=== PATIENT | female | born 1985 | race Two or more races ===

== ENCOUNTER 2023-06-06 21:20 | Emergency (ER) | payer MEDICAID, OTHER, SELFPAY ==
[2023-06-06 21:28] VITALS: BP 119/64; PULSE 93; RESP 17; TEMP 37; O2SAT 97; BMI 30.3
[2023-06-06 22:34] LABS: IDNOW Serial# 58CA691E; Strep A Nucleic Acid Negative (Negative)
[2023-06-06 23:04] LABS: Influenza A PCR POSITIVE (Negative); Influenza B PCR NEGATIVE (Negative); Resp Syncy Virus RNA Qual PCR NEGATIVE (Negative); SARS COV2 PCR INHOUSE NEGATIVE (Negative)
--- NOTE | 2023-06-06 23:47 | ED_ITS ---
HPI - General Adult General Chief complaint: Upper Respiratory Symptoms Stated complaint: flu symptoms cough fever Time Seen by Provider: 06/06/23 23:45 Source: patient and pest technician Mode of arrival: ambulatory Limitations: language barrier History of Present Illness HPI narrative: Patient is a 38 year old assigned female at with no reported medical history presenting to the emergency department today with a sore throat and fever. Patient states that over the last 3 days she has had a sore throat and a fever. Patient denies any dizziness, lightheadedness, abdominal pain, nausea, vomiting, chills, blurry vision, double vision, loss of vision, chest pain, difficulty breathing, shortness of breath, back pain, night sweats, pain with urination, increased urinary frequency, increased urinary urgency, blood in her urine or stool, syncope or a near syncopal episode, recent trauma or falls, bowel incontinence, bladder incontinence, bowel retention, bladder retention, or any other complaints at this time. Onset (ago): day(s) (3) Severity: mild Severity scale (1-10): 2 Relieving factors: none Exacerbating factors: none Associated symptoms: fever/chills Treatments prior to arrival: none Related Data Allergies Allergy/AdvReac Type Severity Reaction Status Date / Time No Known Allergies Allergy Verified 06/06/23 21:28 Review of Systems Constitutional: Constitutional: Reports no additional constitutional complaints, Denies chills, Reports fever(s) and Denies night sweats Eyes: Eyes: Reports no additional eye complaints, Denies blurry vision, Denies change in vision, Denies diplopia, Denies eye discharge, Denies loss of vision and Denies eye pain ENT: Denies dizziness and Reports sore throat Cardiovascular: Cardiovascular: Reports no additional cardiovascular complaints, Denies chest pain, Denies lightheadedness, Denies Loss of Consciousness and Denies dyspnea Respiratory: Respiratory: Reports no additional respiratory complaints and Denies dyspnea Gastrointestinal: Gastrointestinal: Reports no additional gastrointestinal complaints, Denies abdominal pain, Denies melena, Denies hematochezia, Denies change in bowel habits and Denies change in stool character Genitourinary: Genitourinary: Denies hematuria, Denies urinary frequency, Denies dysuria, Denies urinary incontinence, Denies urinary hesitancy and Denies urinary urgency Musculoskeletal: Musculoskeletal: Reports no additional musculoskeletal complaints, Denies numbness and Denies tingling Neurologic: Denies dizziness, Denies loss of vision, Denies numbness and Denies tingling Psychiatric: Psychiatric: Reports no additional psychiatric complaints Endocrine: Endocrine: Reports no additional endocrine complaints Hematologic/Lymphatic: Hematologic/Lymphatic: Reports no additional hematologic/lymphatic complaints Allergic/Immunologic: Allergic/Immunologic: Reports no additional allergic/immunologic complaints PMFSH Past Medical History Attestation statement: The following information was validated with the patient. Source: old records reviewed and nursing notes reviewed Social History Social History Advance Directives: No Advance Directives Information Provided: Yes Physical Exam ED Vital Signs: Vital Signs - 24 hr 06/06/23 21:28 Temperature 98.6 F Pulse Rate 93 Respiratory Rate 17 Blood Pressure 119/64 Pulse Oximetry 97 Oxygen Delivery Method Room Air BMI result Body Mass Index 30.3 Const General: cooperative, no acute distress, alert and awake Nutritional Appearance: well nourished Orientation/consciousness: patient oriented x3 Limitations: no limitations HENMT Head: Yes normal to inspection and Yes atraumatic Ears: hearing grossly normal bilaterally and external ears normal General nose exam: Normal external nose present, no nasal discharge noted and no epistaxis Face and sinus: Yes normal facial exam, No abrasion and No laceration Mouth: Normal oral and palatal mucosa present, no drooling and no muffled voice Eyes General: appearance normal, both eyes and all related structures Periorbital: periorbital findings normal Eyelids: Yes eyelids normal Conjunctivae: conjunctivae normal Pupils: Equal, round and reactive pupils present EOM: EOMs intact bilaterally Neck Neck: Yes normal visual inspection, Yes full ROM and Yes no lymphadenopathy Chest Chest palpation & inspection: normal inspection of the chest Resp Effort & Inspection: normal respiratory effort and able to speak in complete sentences GI Inspection: Yes normal to inspection Neuro General: patient oriented x3 and moves all extremities Cranial nerves: Yes Equal, round and reactive pupils present Cognition (Neuro): normal cognition Motor exam (neuro): 5/5 motor strength present throughout Sensory Exam: Normal double simultaneous stimulation for sensation Coordination: [id number] test normal Extrem General: Yes normal to inspection, Yes full ROM and Yes capillary refill normal Psych Appearance: grossly normal Mental Status: mental status grossly normal Affect: normal affect Attitude: cooperative Thought process: Normal thought process present Thought content: Normal thought content present Insight: Good insight present (Psych) Medical Decision Making Medical Decision Making [facility] Narrative: Patient is a 38 year old assigned female at with no reported medical history presenting to the emergency department today with a sore throat and a fever. Patient's physical exam was unremarkable. Patient's COVID-19, RSV, and strep pharyngitis tests were negative. Patient's influenza test was positive. I explained my physical exam findings as well as all test results to the patient. I answered all questions asked by the patient. I stressed the importance of the patient taking her medication as prescribed. I stressed the importance of the patient following up with her primary care provider. I stressed the importance of the patient returning to the emergency department immediately if her symptoms were to worsen or if she were to develop any dizziness, shortness of breath, difficulty breathing, chest pain, blurry vision, loss of vision, nausea, vomiting, abdominal pain, fever, chills, back pain, or any other complaints. Patient verbalized agreement and understanding with this treatment plan and discharge. Differential Diagnosis Differential Diagnoses: The differential diagnosis associated with the presentation includes Influenza COVID-19 RSV Strep pharyngitis Pharyngitis Admission/Observation Consideration of admission/observation: Escalation of care including admission/observation considered Patient would have been admitted to the hospital had her work up had any findings where hospital admission was appropriate and her clinical presentation warranted hospital admission. Lab Data [facility] Lab Attestation statement: I reviewed the patient's lab results. My interpretation of these results are in the [facility] Rationale portion of this note. Labs: Lab Results 06/06/23 Range/Units 22:15 Influenza Type A (PCR) POSITIVE A (Negative) Influenza Type B (PCR) NEGATIVE (Negative) RSV RNA Qual (PCR) NEGATIVE (Negative) SARS-CoV-2 RNA (RT-PCR) NEGATIVE (Negative) S. pyogenes GrpA SUMIT Negative (Negative) Prescription Management I considered prescription management with: Antiviral (tamiflu was considered how ever, given the patient's onset of symptoms, she is not a candidate.) Discharge Plan Discharge Clinical Impression: Influenza Patient Disposition: Home, Self-Care Instructions: Influenza (DC) Additional Instructions: Follow up with your primary care provider. Return to the emergency department immediately if your symptoms worsen or if you develop any dizziness, shortness of breath, difficulty breathing, chest pain, blurry vision, loss of vision, nausea, vomiting, abdominal pain, fever, chills, back pain, or any other complaints. Aaliyah un seguimiento con cui proveedor de atenci?n primaria. Regrese al departamento de emergencias inmediatamente si nahun s?ntomas empeoran o si presenta mareos, dificultad para respirar, dificultad para respirar, dolor en el pecho, visi?n borrosa, p?rdida de la visi?n, n?useas, v?mitos, dolor abdominal, fiebre, escalofr?os, dolor de espalda o cualquier otras quejas. Referrals: [facility] Family Medicine [Provider Group] (Call to establish and follow up with a primary care provider. If you already have a primary care provider, please follow up with them. Llame para establecer y realizar un seguimiento con un proveedor de atenci?n primaria. Si ya tiene un proveedor de atenci?n primaria, aaliyah un seguimiento con ?l.) [facility] Primary [facility] [Provider Group] (Call to establish and follow up with a primary care provider. If you already have a primary care provider, please follow up with them. Llame para establecer y realizar un seguimiento con un proveedor de atenci?n primaria. Si ya tiene un proveedor de atenci?n primaria, aaliyah un seguimiento con ?l.) [facility] Primary Care,[facility] [Provider Group] (Call to establish and follow up with a primary care provider. If you already have a primary care provider, please follow up with them. Llame para establecer y realizar un seguimiento con un proveedor de atenci?n primaria. Si ya tiene un proveedor de atenci?n primaria, aaliyah un seguimiento con ?l.) Stand Alone Forms: Work/School Release Interventions: ED Discharge Assessment Last Done: 06/07/23 00:25 Discharge Date/Time: 06/07/23 00:26 Print Language: Estonian
== END 2023-06-07 00:26 | disposition home or self-care (01) ==
PROVIDERS: Emergency Provider Emergency Medicine
DX: J11.1 Influenza due to unidentified influenza virus with other respiratory manifestations (principal); Z20.822 Contact with and (suspected) exposure to COVID-19; Z20.828 Contact with and (suspected) exposure to other viral communicable diseases
CPT/HCPCS: 0241U; 87651; 99283

== ENCOUNTER 2024-01-04 19:11 | Emergency (ER) | payer MEDICAID, OTHER, SELFPAY ==
--- NOTE | 2024-01-04 20:09 | PC.NURSE ---
Loader called to assist w/ triage.
--- NOTE | 2024-01-04 20:23 | ED_ITS ---
HPI - Female Genitourinary General Chief complaint: Urogenital-Female Stated complaint: Vaginal pain Time Seen by Provider: 01/04/24 22:13 Source: patient Mode of arrival: ambulatory Limitations: no limitations History of Present Illness ED Provider: Jean CHAMBERLAIN HPI Narrative: This is a 38 year old female denies pmhx presenting w/ vaginal itching, suprapubic discomfort, spotting when wiping X 15 days. Patient reports when she urinates it ross alot. Denies vaginal, discharge, nausea, vomiting, headache, vision changesm dizziness, weakness, fevers, chills. No OBGYN. Last pap a long time ago. Related Data Previous Rx's ?Medication ?Instructions ?Recorded cefdinir 300 mg capsule 300 mg PO BID 5 days #10 caps 01/04/24 fluconazole 150 mg tablet 150 mg PO Q3D 2 doses #2 tabs 01/04/24 metronidazole 500 mg tablet 500 mg PO BID 7 days #14 tabs 01/04/24 Allergies Allergy/AdvReac Type Severity Reaction Status Date / Time No Known Allergies Allergy Verified 01/04/24 20:26 Review of Systems Review of Systems: Yes all other systems are reviewed and are negative PMFSH Past Medical History Attestation statement: The following information was validated with the patient. Source: old records reviewed and nursing notes reviewed Social History Social History Advance Directives: No Advance Directives Information Provided: No Physical Exam Vital Signs: Vital Signs: Last Vital Signs Temp 98.0 F 01/04/24 20:24 Pulse 62 01/04/24 20:24 Resp 18 01/04/24 20:24 BP 137/53 L 01/04/24 20:24 Pulse Ox 98 01/04/24 20:24 O2 Del Method Room Air 01/04/24 20:24 BMI result Body Mass Index 31.9 vss Appearance: Alert.? Oriented X3.? No acute distress.? Head: Normocephalic, atraumatic, no step-offs or deformities Eyes: Pupils equal, round and reactive to light.? ENT: Pharynx normal.? Neck: Normal inspection.? Neck supple.? CVS: Normal heart rate and rhythm.? Pulses normal.? Respiratory: No respiratory distress.? Breath sounds normal.? Abdomen: Soft and nontender.? Skin: Skin warm and dry.? Normal skin color.? Normal skin turgor.? Extremities: No lower extremity edema.? No calf ttp. 5/5 strength to bilateral upper and lower extremities Back: No midline tenderness, no C-spine tenderness, full range of motion, no CVA tenderness bilaterally Sensative exam: sepideh DAUGHERTY at bedside as alumni relations officer - mild discoloration of the cervix with a white/purple hue, yellow/green vaginal discharge no bleeding no abrasions noted in vaginal canal. Normal external genitalia. Neuro: Oriented X 3.? No motor deficit.? No sensory deficit. CN 2-12 intact Course Course Course Narrative: This is a Rapid Medical Examination (RME) performed by James Gottlieb PA-C in triage. Full HPI, ROS, assessment and treatment plan per primary provider in the Main ED. 38 yo female presents to the ER for pelvic pain for the last 15 days. It has been constant and has been getting worse. Pain with urination & intercourse. No vaginal discharge. LMP 2 weeks ago. No N/V/D. Endorses itching and pain as well. Plan: pelvic exam, UA Reevaluation(s) Reevaluation #1: UA without infection. Urine negative. Educated patient on diagnosis and treatment plan, answered all question, patient verbalizes understanding. At this time patient will be discharged home, advised to return with new or worsening symptoms. Educated on worrisome signs and symptoms and when to return. At this time I feel comfortable discharge home. Time: 22:47 Medical Decision Making Medical Decision Making [facility] Narrative: 38-year-old female presents with suprapubic discomfort, difficulties with urination for the past 15 days. Physical exam Sensative exam: sepideh DAUGHERTY at bedside as alumni relations officer - mild discoloration of the cervix with a white/purple hue, yellow/green vaginal discharge no bleeding no abrasions noted in vaginal canal. Normal external genitalia. History and physical exam concerning for UTI versus cystitis. Unlikely pyelonephritis, acute abdomen, torsion, ectopic . Will rule out pregn jed, gonorrhea and chlamydia as well as Trichomonas and BV. No signs of vaginal hemorrhage or bleeding on my exam. Plan urine, gonorrhea, chlamydia. Differential Diagnosis Differential Diagnoses: The differential diagnosis associated with the presentation includes History and physical exam concerning for UTI versus cystitis. Unlikely pyelonephritis, acute abdomen, torsion, ectopic . Will rule out , gonorrhea and chlamydia as well as Trichomonas and BV. No signs of vaginal hemorrhage or bleeding on my exam. Admission/Observation Consideration of admission/observation: Escalation of care including admission/observation considered No indication Lab Data [facility]DM Lab Attestation statement: I reviewed the patient's lab results. Labs: Lab Results 01/04/24 Range/Units 21:12 Urine Color Yellow Urine Appearance Clear Urine pH 7.0 (5.0-9.0) Ur Specific Sieper 1.025 (1.005-1.025) Urine Protein Negative (Neg-Trace) mg/dL Urine Glucose (UA) Negative (Negative) mg/dL Urine Ketones Negative (Negative) mg/dL Urine Blood Negative (Negative) Urine Nitrite Negative (Negative) Ur Leukocyte Esterase Negative (Negative) Urine Test NEGATIVE (NEGATIVE) Prescription Management I considered prescription management with: Antibiotic and Other (Flu continence) Discharge Plan Discharge Clinical Impression: Cystitis, Suprapubic discomfort, Vaginal discharge Patient Disposition: Home, Self-Care Instructions: Pelvic Pain in Women (ED), Vaginal Discharge (ED) Additional Instructions: Take your medications as prescribed. If you were prescribed antibiotics today, it is important that you take your medication to their entirety, do not skip any doses, do not finish them early. Follow-up with your primary care provider this week. Return to the emergency department with new or worsening symptoms. Such as fevers, chills, chest pain, shortness of breath, nausea, vomiting, dizziness, headache, vision changes, lethargy In case of emergency call 911 Please take your antibiotics 1st cefdinir, metronidazole, and after you complete then you can start fluconazole. Prescriptions: New fluconazole 150 mg tablet 150 mg PO Q3D Qty: 2 0RF metronidazole 500 mg tablet 500 mg PO BID 7 Days Qty: 14 0RF cefdinir 300 mg capsule 300 mg PO BID 5 Days Qty: 10 0RF Referrals: Physician,None [Primary Care Provider] - 2 days Brad Tello MD [Physician] - 1 week Stand Alone Forms: Work/School Release Print Language: Latvian
[2024-01-04 20:24] VITALS: BP 137/53; PULSE 62; RESP 18; TEMP 36.7; O2SAT 98; BMI 31.9
--- NOTE | 2024-01-04 21:13 | MHC.EDTECH ---
Patient brought into triage area,urine sample collected and sent to lab.
[2024-01-04 21:28] LABS: Appearance Urine Clear; Color Urine Yellow; Glucose Urine UA Negative (Negative); Leukocyte Esterase Urine Negative (Negative); Nitrite Urine Negative (Negative); Specific Gravity - Urine 1.025 (1.005-1.025); Urine Blood Negative (Negative); Urine Ketones Negative (Negative); Urine Protein Negative (Neg-Trace)
[2024-01-04 21:31] LABS: UPreg QC Valid YES; Urine Pregnancy NEGATIVE (NEGATIVE)
[2024-01-04 23:10] VITALS: BP 104/84; PULSE 58; RESP 20; TEMP 36.6; O2SAT 98
--- NOTE | 2024-01-04 23:11 | PC.NURSE ---
swabs obtained/sent to lab.
--- NOTE | 2024-01-04 23:13 | PC.NURSE ---
Took of care from CHRISTOPHER Shearer, the nurse reviewed the discharge instruction with pt only. Pt verbalized understanding, no sign of distress.
[2024-01-04 23:18] VITALS: BP 104/84; PULSE 58; RESP 20; TEMP 36.6; O2SAT 98
[2024-01-05 06:00] LABS: CT PCR NOT DETECTED (Not Detect.); NG PCR NOT DETECTED (Not Detect.)
[2024-01-05 09:10] LABS: Bacterial Vaginosis PCR NEGATIVE (Negative); Candida Group PCR NOT DETECTED (Not Detect); Candida glab krusei PCR NOT DETECTED (Not Detect); Trichomonas vaginalis PCR NOT DETECTED (Not Detect)
== END 2024-01-04 23:19 | disposition home or self-care (01) ==
PROVIDERS: Physician Assistant; Emergency Provider Emergency Medicine
DX: N30.90 Cystitis, unspecified without hematuria (principal); R10.2 Pelvic and perineal pain; N89.8 Other specified noninflammatory disorders of vagina; L29.2 Pruritus vulvae; N92.0 Excessive and frequent menstruation with regular cycle; R30.0 Dysuria
CPT/HCPCS: 0352U; 81003; 81025; 87491; 87591; 99283

== ENCOUNTER 2025-04-23 13:16 | Inpatient (IN) | payer MEDICAID, OTHER, SELFPAY ==
--- NOTE | ~2025-04-23 | US_ITS ---
CLINICAL HISTORY: Upper abdo pain, please eval for Gallstones US abdomen limited Comparison: None provided Findings: The common duct is 2 mm in diameter. Cholelithiasis with the largest stone measuring 2.1 cm. There is sonographic Larios sign. No pericholecystic fluid. IMPRESSION: 1. Cholelithiasis. This document has been electronically signed by: Shantel Jo MD on 04/23/2025 19:53:40
[2025-04-23 14:29] VITALS: BP 135/79; PULSE 70; RESP 18; TEMP 36.4; O2SAT 99; BMI 41.1
--- NOTE | 2025-04-23 14:32 | ED.GENADULT ---
HPI - General Adult General Chief complaint: Abdominal Pain Stated complaint: ?Kidney Stone Time Seen by Provider: 04/23/25 18:04 History of Present Illness ED Provider: Sarkis TOURE narrative: the patient is a 39-year-old female who says that she has no significant past medical history although she has had C-sections with pregnancies in the past. She says that for the past 2 weeks she has had upper abdominal pain. This is sometimes exacerbated by eating. She has had no fever. She says this morning at around 03:00 she had pain that was very severe but she had no one to bring her to the hospital. The pain subsided but worsened after she ate a sandwich at around noon today. She was then able to come to the emergency room. No fever, sweats, chills. The patient also has some pain in her left lower back that is worse when she moves. Related Data Home Medications ?Medication ?Instructions ?Recorded ?Confirmed No Known Home Meds 04/24/25 04/24/25 Allergies Allergy/AdvReac Type Severity Reaction Status Date / Time No Known Allergies Allergy Verified 04/23/25 14:30 Review of Systems Review of Systems: Yes all other systems are reviewed and are negative [facility] Past Medical History Surgical History (Updated 04/24/25 @ 08:12 by Aubrie Sen RN) Previous section Social History Social History (System 01/05/24 @ 08:27 by Caroline Voss) Household Members: Spouse and Children Housing: Apartment Do you presently have visiting nurse or other home services: No Patient Tobacco Use Status: Never used Tobacco Have you been hit, kicked, punched, or otherwise hurt by someone within the past year? If so, by whom?: No Do you feel safe in your current relationship?: Yes Is there a partner from a previous relationship who is making you feel unsafe now?: No Are you made to feel afraid or neglected: No Advance Directives: No Advance Directives Information Provided: No Do you have a plan to hurt others: No Plan Recently lost weight without trying: No Nutrition Risks: No Nutritional Risk Patient : No : No Poor oral hygiene: No Physical Exam ED Vital Signs: Vital Signs - 24 hr 04/23/25 14:29 04/23/25 18:14 04/23/25 20:06 Temperature 97.6 F 97.4 F 97.8 F Pulse Rate 70 68 60 Respiratory Rate 18 16 16 Blood Pressure 135/79 116/59 L 123/63 Pulse Oximetry 99 97 100 Oxygen Delivery Method Room Air Room Air Room Air 04/23/25 20:55 04/23/25 22:08 Temperature 98.0 F Pulse Rate 60 70 Respiratory Rate 14 16 Blood Pressure 123/78 138/75 Pulse Oximetry 99 98 Oxygen Delivery Method Room Air Room Air BMI result Body Mass Index 41.1 Const Other: The patient is awake, alert, pleasant, cooperative. She does not appear obviously uncomfortable or toxic. Orientation/consciousness: patient oriented x3 HENMT Other: The face is symmetrical. Mucous membranes moist. Eyes Other: Pupils are round equal, conjunctivae are clear, extraocular movements intact Neck Neck: Yes normal visual inspection and Yes full ROM Resp Effort & Inspection: normal respiratory effort Auscultation: clear to auscultation bilaterally Cardio Rate: regular rate Rhythm: regular rhythm Heart sounds: S1 normal heart sound present and S2 normal heart sound present GI Other: The abdomen is soft. She is tender in the right upper quadrant. Back/Spine/Pelvis Other: there is left-sided tenderness with manual palpation in the left paraspinous muscles. I did not feel there was true CVA percussion tenderness however. Skin Other: Skin is dry and unremarkable Neuro General: patient oriented x3, tone normal, moves all extremities, no focal motor deficits and CN's II-XI intact bilaterally Extrem Other: There is no calf swelling or tenderness. No asymmetry. No peripheral edema. Course Course Course Narrative: RME: 39-year-old female presents to ED for abdominal pain and left flank pain with difficulty with urinary stream. Patient denies any fever chills, chest pain or shortness of breath, labs ordered Medications Administered Generic Name Dose Route Start Last Admin Trade Name Freq PRN Reason Stop Dose Admin Lactated Ringer's 1,000 mls @ 100 mls/hr 04/23/25 23:30 04/24/25 09:10 Lr IVCONT 100 mls/hr .Q10H IMANI Administration Piperacillin Sod/Tazobactam 50 mls @ 100 mls/hr 04/24/25 00:00 04/24/25 06:24 Sod 3.375 gm/ Sodium Chloride IV Infused Q6H IMANI Infusion Oxycodone HCl 5 mg 04/23/25 23:28 04/24/25 07:44 Oxycodone Hcl Immed Release 5 Mg Tablet PO 5 mg Q6H PRN Administration Pain, Moderate(Pain Scale 4-6) Sodium Chloride 3 ml 04/24/25 00:00 04/24/25 07:13 0.9 % Sodium Chloride Flush 3 Ml Syringe IVFLUSH Not Given QSHIFT IMANI Discontinued Medications Generic Name Dose Route Start Last Admin Trade Name Freq PRN Reason Stop Dose Admin Famotidine 20 mg 04/23/25 18:26 04/23/25 19:31 Famotidine/Pf 20 Mg/2 Ml Vial IVPUSH 04/23/25 18:27 20 mg ONCE ONE Administration Sodium Chloride 1,000 mls @ 999 mls/hr 04/23/25 18:30 04/23/25 20:48 Ns IV 04/23/25 19:30 Infused .Q1H1M IMANI Infusion Ketorolac Tromethamine 15 mg 04/23/25 18:26 04/23/25 19:29 Ketorolac Tromethamine 15 Mg/Ml Vial IVPUSH 04/23/25 18:27 15 mg ONCE ONE Administration Sucralfate 1 gm 04/23/25 21:58 04/23/25 23:00 Sucralfate Oral Suspension 1 Gm/10 Ml Oral.Susp PO 04/23/25 21:59 1 gm ONCE ONE Administration Medical Decision Making Medical Decision Making [facility] Narrative: The patient is a 39-year-old female who presents with 2 weeks of upper abdominal pain that I believe is worse with eating. An ultrasound shows gallstones including a fairly large gallstone at 2 cm. There was also a sonographic Larios's described. However there was no pericholecystic fluid or wall thickening and she has no fever, a normal white count and normal LFTs. The patient was given a dose of ketorolac and seemed to have some improvement in her her pain although she still had some right upper quadrant tenderness. I contacted General surgery who recommended a trial of oral intake to see if her pain was exacerbated by eating. The patient was given food in the emergency room and then had a worsening of her pain. At that point the surgery team recommended admission and the patient was admitted to the General surgery Service. The patient has not seemed toxic or infected in any way. Lab Data 04/24/25 03:46 04/23/25 14:42 Labs: Lab Results 04/23/25 04/23/25 Range/Units 14:42 14:45 WBC 6.3 (4.8-10.8) X10*3/uL RBC 4.74 (4.20-5.50) X10*6/uL Hgb 13.3 (12.0-16.0) g/dl Hct 40.3 (37.0-47.0) % MCV 85.0 (80.0-98.0) fL MCH 28.1 (27.0-33.0) pg MCHC 33.0 (31.0-35.0) g/dl RDW 12.7 (11.0-16.0) % Plt Count 325 (160-400) X10*3/uL MPV 8.6 L (9.4-12.3) fL Immature Gran % (Auto) 0.3 (0.0-0.4) % Neut % (Auto) 65.4 (45-73) % Lymph % (Auto) 21.9 (20-40) % [place] % (Auto) 9.7 (2-11) % Eos % (Auto) 2.4 (0-4) % Baso % (Auto) 0.3 (0-2) % Lymph # (Auto) 1.4 (1.2-4.9) X10*3/uL [place] # (Auto) 0.6 (0.1-1.2) X10*3/uL Eos # (Auto) 0.2 (0.0-0.4) X10*3/uL Baso # (Auto) 0.0 (0.0-0.2) X10*3/uL Abs Immat Gran (auto) 0.02 (0.00-0.03) X10*3/uL Absolute Neuts (auto) 4.1 (2.0-8.3) x10*3/uL Absolute Nucleated RBC 0.000 (0.0-0.012) X10*3/uL Nucleated RBC % (auto) 0.0 (0.0-0.2) /100WBC Sodium 141 (135-145) mmol/L Potassium 3.7 (3.3-5.1) mmol/L Chloride 110 H (96-108) mmol/L Carbon Dioxide 26 (22-29) mmol/L Anion Gap 9 L (12-20) BUN 14 (9-16) mg/dL Creatinine 0.56 (0.5-1.4) mg/dL Estim Creat Clear Calc 122.7 Estimated GFR > 60 Random Glucose 100 (60-115) mg/dL Calcium 9.1 (8.4-10.2) mg/dL Total Bilirubin 0.2 (0.0-1.0) mg/dL AST 24 (5-31) U/L ALT 20 (0-31) U/L Alkaline Phosphatase 97 (39-117) U/L C-Reactive Protein 0.16 (< or = 0.50) mg/dL Total Protein 7.0 (6.5-8.0) g/dL Albumin 4.3 (3.5-5.0) g/dL Lipase 29 (8-78) U/L Beta HCG, Quant < 2 mIU/mL Urine Color Yellow Urine Appearance Clear Urine pH 6.0 (5.0-9.0) Ur Specific [place] 1.020 (1.005-1.025) Urine Protein Negative (Neg-Trace) mg/dL Urine Glucose (UA) Negative (Negative) mg/dL Urine Ketones Negative (Negative) mg/dL Urine Blood Negative (Negative) Urine Nitrite Negative (Negative) Ur Leukocyte Esterase Negative (Negative) Urine Test NEGATIVE (NEGATIVE) Discharge Plan Discharge Clinical Impression: Abdominal pain Qualifiers: Abdominal location: right upper quadrant Qualified Code(s): R10.11 - Right upper quadrant pain Cholelithiasis Qualifiers: Cholelithiasis location: gallbladder Cholecystitis presence: without cholecystitis Biliary obstruction: without biliary obstruction Qualified Code(s): K80.20 - Calculus of gallbladder without cholecystitis without obstruction Patient Disposition: Admitted As Inpatient Interventions: Admission Worksheet (ED) Last Done: 04/24/25 07:37
[2025-04-23 14:50] LABS: MANUAL DIFF FLAG NO
[2025-04-23 14:51] LABS: Hematocrit 40.3 % (37.0-47.0); Hemoglobin 13.3 g/dl (12.0-16.0); Imm Gran Abs Auto 0.02 X10*3/uL (0.00-0.03); Imm Gran Pct Auto 0.3 % (0.0-0.4); Lymphocytes Absolute Auto 1.4 X10*3/uL (1.2-4.9); Mean Corpuscular HGB Conc 33.0 g/dl (31.0-35.0); Mean Corpuscular Hemoglobin 28.1 pg (27.0-33.0); Mean Corpuscular Volume 85.0 fL (80.0-98.0); NRBC Abs Auto 0.000 X10*3/uL (0.0-0.012); NRBC Pct Auto 0.0 /100WBC (0.0-0.2); Platelet Count 325 X10*3/uL (160-400); Red Blood Count 4.74 X10*6/uL (4.20-5.50); White Blood Count 6.3 X10*3/uL (4.8-10.8)
[2025-04-23 14:52] LABS: Appearance Urine Clear; Glucose Urine UA Negative (Negative); PH 6.0 (5.0-9.0); Specific Gravity - Urine 1.020 (1.005-1.025)
[2025-04-23 15:02] LABS: UPreg QC Valid YES
[2025-04-23 15:10] LABS: Alanine Aminotransferase 20 U/L (0-31); Albumin Level 4.3 g/dL (3.5-5.0); Alkaline Phosphatase 97 U/L (39-117); Anion Gap 9 (12-20); Aspartate Amino Transferase 24 U/L (5-31); Blood Urea Nitrogen 14 mg/dL (9-16); Calcium 9.1 mg/dL (8.4-10.2); Carbon Dioxide 26 mmol/L (22-29); Chloride 110 mmol/L (96-108); Creatinine Clr Calc Pharmacy 122.7; Estimated Glomerular Filt Rate > 60; Lipase 29 U/L (8-78); Potassium 3.7 mmol/L (3.3-5.1); Sodium 141 mmol/L (135-145); Total Protein 7.0 g/dL (6.5-8.0)
[2025-04-23 18:14] VITALS: BP 116/59; PULSE 68; RESP 16; TEMP 36.3; O2SAT 97
[2025-04-23 20:06] VITALS: BP 123/63; PULSE 60; RESP 16; TEMP 36.6; O2SAT 100
[2025-04-23 20:55] VITALS: BP 123/78; PULSE 60; RESP 14; O2SAT 99
[2025-04-23 22:08] VITALS: BP 138/75; PULSE 70; RESP 16; TEMP 36.7; O2SAT 98
[2025-04-23] MEDS: Sucralfate Oral Suspension 1 GM/10 ML ORAL.SUSP PO (23:00)
[2025-04-24] VITALS (10 sets, daily range): BP systolic 107–136; BP diastolic 55–78; PULSE 63–91; RESP 13–19; TEMP 36–36.9; O2SAT 92–97
--- NOTE | 2025-04-24 | PC.NURSE ---
Per ED provider, no blood cultures needed at this time.
[2025-04-24] MEDS: 0.9 % Sodium Chloride Flush 3 ML SYRINGE IVFLUSH (00:11)
[2025-04-24] MEDS: Lactated Ringers 1,000 ML 100 ML IVCONT ×2 (00:46→09:10)
[2025-04-24 03:59] LABS: MANUAL DIFF FLAG NO
[2025-04-24 04:02] LABS: Hematocrit 36.8 % (37.0-47.0); Hemoglobin 12.3 g/dl (12.0-16.0); Imm Gran Abs Auto 0.02 X10*3/uL (0.00-0.03); Imm Gran Pct Auto 0.4 % (0.0-0.4); Lymphocytes Absolute Auto 1.3 X10*3/uL (1.2-4.9); Mean Corpuscular HGB Conc 33.4 g/dl (31.0-35.0); Mean Corpuscular Hemoglobin 28.1 pg (27.0-33.0); Mean Corpuscular Volume 84.2 fL (80.0-98.0); NRBC Abs Auto 0.000 X10*3/uL (0.0-0.012); NRBC Pct Auto 0.0 /100WBC (0.0-0.2); Platelet Count 294 X10*3/uL (160-400); Red Blood Count 4.37 X10*6/uL (4.20-5.50); White Blood Count 5.4 X10*3/uL (4.8-10.8)
[2025-04-24 04:18] LABS: Alanine Aminotransferase 17 U/L (0-31); Albumin Level 3.6 g/dL (3.5-5.0); Alkaline Phosphatase 75 U/L (39-117); Aspartate Amino Transferase 21 U/L (5-31); Total Protein 6.0 g/dL (6.5-8.0)
--- NOTE | 2025-04-24 07:10 | PC.NURSE ---
This RN assumed care of patient @ 0700 Patient german speaking but able to make needs known IV 20G LAC currently running LR @ 100 VSS and up to date Surgery provider in with patient Plan of care on going
--- NOTE | 2025-04-24 07:39 | P.HPGS_ITS ---
History of Present Illness History of Present Illness Date of Service: 04/24/25 <Darien Matt PA-C - Last Filed: 04/24/25 08:20> 04/24/25 <Lukasz Rivera MD - Last Filed: 04/24/25 14:39> Chief complaint: symptomatic cholelithiasis <Darien Matt PA-C - Last Filed: 04/24/25 08:20> Narrative: Neha Hardy is a 39 year old otherwise healthy female who presented to the ED with a 2 week history of intermittent RUQ and epigastric pain in her abdomen. She states that this has been daily, and is often precipitated by meal. she reports subjective chills at home. She denies nausea or vomiting. Reports the pain was so bad yesterday that she felt the need to come to the ED. She denies any significant medical history, denies daily medications. She has a history of 1 Csection about 15 years ago. Workup in the ED included basic labs, showing no abnormalities. Abd US showing cholelithiasis, no wall thickening, or pericholecystic fluid. To note she did have some improvement in pain with low dose toradol. She then trialled diet for which her symptoms returned. Currently states her pain is a 5/10. denying nausea/vomiting. She was started on IV fluid and IV zosyn. <Darien Matt PA-C - Last Filed: 04/24/25 08:20> Review of Systems Review of Systems: Yes all other systems are reviewed and are negative <Darien Matt PA-C - Last Filed: 04/24/25 08:20> [facility] Surgical History Surgical History: Surgical History Previous section <Darien Matt PA-C - Last Filed: 04/24/25 08:20> Social History Social History: Social History Household Members: Spouse and Children Housing: Apartment Are you a primary skin care instructor to a significant other at home: No Do you presently have visiting nurse or other home services: No Patient Tobacco Use Status: Never used Tobacco Second Hand Smoke Exposure: No Use of substances other than those prescribed or required for medical reasons: No Have you been hit, kicked, punched, or otherwise hurt by someone within the past year? If so, by whom?: No Do you feel safe in your current relationship?: Yes Is there a partner from a previous relationship who is making you feel unsafe now?: No Are you made to feel afraid or neglected: No Are you DNR?: No Advance Directives: No Advance Directives Information Provided: No Advance Directives on File: No Do you have a plan to hurt others: No Plan Recently lost weight without trying: No Nutrition Risks: No Nutritional Risk Patient : No : No Poor oral hygiene: No <Darien Matt PA-C - Last Filed: 04/24/25 08:20> Meds Allergies/Adverse reactions: Allergies Allergy/AdvReac Type Severity Reaction Status Date / Time No Known Allergies Allergy Verified 04/23/25 14:30 <Darien Matt PA-C - Last Filed: 04/24/25 08:20> Active Medications: Current Medications Acetaminophen (Acetaminophen 325 Mg Tablet) 650 mg PO Q6H PRN PRN Reason: Pain, Mild 1-3,fever,headache Calcium Carbonate (Calcium Carbonate 750 Mg Tab.Chew) 750 mg PO Q4H PRN PRN Reason: Heartburn Hydromorphone HCl (Hydromorphone Hcl 1 Mg/Ml Syringe) 0.5 mg IVPUSH Q4H PRN; Protocol PRN Reason: Pain, Severe (Pain Scale 7-10) Lactated Ringer's (Lr) 1,000 mls @ 100 mls/hr IVCONT .Q10H IMANI Last Infusion: 04/24/25 06:24 Dose: 100 mls/hr Piperacillin Sod/Tazobactam (Sod 3.375 gm/ Sodium Chloride) 50 mls @ 100 mls/hr IV Q6H IMANI Last Infusion: 04/24/25 06:24 Dose: Infused Magnesium Hydroxide (Milk Of Magnesia 30 Ml Oral.Susp) 30 ml PO DAILY PRN PRN Reason: Constipation Melatonin (Melatonin 3 Mg Tablet) 6 mg PO BEDTIME PRN PRN Reason: Insomnia Ondansetron HCl (Ondansetron Hcl 4 Mg/2 Ml Vial) 4 mg IVPUSH Q8H PRN PRN Reason: Nausea and Vomiting Oxycodone HCl (Oxycodone Hcl Immed Release 5 Mg Tablet) 5 mg PO Q6H PRN PRN Reason: Pain, Moderate(Pain Scale 4-6) Sodium Chloride (0.9 % Sodium Chloride Flush 3 Ml Syringe) 3 ml IVFLUSH QSHIFT [facility] Last Admin: 04/24/25 07:13 Dose: Not Given <BULMARO Guerrier Last Filed: 04/24/25 08:20> Home medications: Home Medications ?Medication ?Instructions ?Recorded ?Confirmed ?Last Taken ?Type No Known Home Meds 04/24/25 04/24/25 Un known History <Darien Matt PA-C Last Filed: 04/24/25 08:20> Physical Exam Vital Signs: Vital Signs: Last Vital Signs Temp 98.5 F 04/24/25 05:02 Pulse 63 04/24/25 05:02 Resp 16 04/24/25 05:02 BP 107/55 L 04/24/25 05:02 Pulse Ox 96 04/24/25 05:02 O2 Del Method Room Air 04/24/25 05:02 BMI result Body Mass Index 41.1 <Darien Matt PA-C Last Filed: 04/24/25 08:20> Const: General: comfortable and no acute distress <Darien Matt PA-C Last Filed: 04/24/25 08:20> Orientation/consciousness: patient oriented x3 <Darien Matt PA-C Last Filed: 04/24/25 08:20> Resp: Effort & Inspection: normal respiratory effort and able to speak in complete sentences <BULMARO Guerrier Last Filed: 04/24/25 08:20> GI: Inspection: No distended <Darien Matt PA-C Last Filed: 04/24/25 08:20> Palpation (GI): Soft to palpation and Tenderness to palpation present (GI) in the epigastrum, in the RUQ and Larios's sign positive (positive) <BULMARO Guerrier Last Filed: 04/24/25 08:20> Neuro: General: patient oriented x3 <BULMARO Guerrier Last Filed: 04/24/25 08:20> Results Results Labs: Short CBC 04/23/25 04/24/25 Range/Units 14:42 03:46 WBC 6.3 5.4 (4.8-10.8) X10*3/uL Hgb 13.3 12.3 (12.0-16.0) g/dl Hct 40.3 36.8 L (37.0-47.0) % Plt Count 325 294 (160-400) X10*3/uL BMP 04/23/25 14:42 Sodium 141 Potassium 3.7 Chloride 110 H Carbon Dioxide 26 BUN 14 Creatinine 0.56 Calcium 9.1 Liver Function 04/23/25 04/24/25 Range/Units 14:42 03:46 Total Bilirubin 0.2 0.5 (0.0-1.0) mg/dL Direct Bilirubin 0.1 (0.0-0.5) mg/dL AST 24 21 (5-31) U/L ALT 20 17 (0-31) U/L Alkaline Phosphatase 97 75 (39-117) U/L Albumin 4.3 3.6 (3.5-5.0) g/dL Urine 04/23/25 Range/Units 14:45 Urine Color Yellow Urine Appearance Clear Urine pH 6.0 (5.0-9.0) Ur Specific [place] 1.020 (1.005-1.025) Urine Protein Negative (Neg-Trace) mg/dL Urine Glucose (UA) Negative (Negative) mg/dL Urine Test NEGATIVE (NEGATIVE) <Darien Matt PA-C - Last Filed: 04/24/25 08:20> Assessment and Plan (1) Cholelithiasis: Qualifiers: Biliary obstruction: without biliary obstruction Cholecystitis presence: without cholecystitis Cholelithiasis location: gallbladder Qualified Code(s): K80.20 - Calculus of gallbladder without cholecystitis without obstruction <Darien Matt PA-C - Last Filed: 04/24/25 08:20> Status: Acute <BULMARO Guerrier Last Filed: 04/24/25 08:20> (2) Abdominal pain: Qualifiers: Abdominal location: right upper quadrant Qualified Code(s): R10.11 - Right upper quadrant pain <BULMARO Guerrier Last Filed: 04/24/25 08:20> Status: Acute <BULMARO Guerrier Last Filed: 04/24/25 08:20> 39 year old otherwise healthy female who presented to the ED with a 2 week history of intermittent RUQ and epigastric pain in her abdomen. Workup in the ED suggestive of symtpomatic cholelithiasis. There was no leukocytosis, or other lab abnormalities. US showing cholelithiasis without inflammatory changes suggestive of cholecystitis. She was started on IV zosyn and fluids. Currently pain is 5/10 in the RUQ epigastric area, no nausea or vomiting. On exam her abdomen was soft, tender in the RUQ, positive murphys sign. She had failed a trial of diet last night, resulting in repporduction of symptoms. We discussed options for treatment incluidng conservative treatment vs surgery. Patient states she does not want to have this happen to her again. We discussed risks, benefits, alternatives. It is likely she would be unable to tolerate diet if conservative treatment was chosen, and she ultimately decided to peruse surgical intervention. She has been added onto the OR schedule today for laparoscopic cholecystectomy possible open, pending OR schedule, likely can go today. continue IV zosyn NPO IV fluids added onto OR schedule for Lap constantin <Darien Matt PA-C - Last Filed: 04/24/25 08:20> 39 year old otherwise healthy female who presented to the ED with a 2 week history of intermittent RUQ and epigastric pain in her abdomen. Workup in the ED suggestive of symtpomatic cholelithiasis. There was no leukocytosis, or other lab abnormalities. US showing cholelithiasis without inflammatory changes suggestive of cholecystitis. She was started on IV zosyn and fluids. Currently pain is 5/10 in the RUQ epigastric area, no nausea or vomiting. On exam her abdomen was soft, tender in the RUQ, positive murphys sign. She had failed a trial of diet last night, resulting in repporduction of symptoms. We discussed options for treatment incluidng conservative treatment vs surgery. Patient states she does not want to have this happen to her again. We discussed risks, benefits, alternatives. It is likely she would be unable to tolerate diet if conservative treatment was chosen, and she ultimately decided to peruse surgical intervention. She has been added onto the OR schedule today for laparoscopic cholecystectomy possible open, pending OR schedule, likely can go today. continue IV zosyn NPO IV fluids added onto OR schedule for Lap constantin Patient seen and examined. Events reviewed agree with above findings, assement and plan. <Lukasz Rivera MD - Last Filed: 04/24/25 14:39> Quality Stroke Does the patient have a stroke diagnosis?: No <Darien Matt PA-C - Last Filed: 04/24/25 08:20> VTE Prior VTE?: No <Darien Matt PA-C - Last Filed: 04/24/25 08:20> VTE Risk Level:: Surgical - low <Darien Matt PA-C - Last Filed: 04/24/25 08:20> VTE Device Contraindication: N/A - Device Ordered <Darien Matt PA-C - Last Filed: 04/24/25 08:20> VTE Drug Contraindication: Treatment Not Indicated <Darien Matt PA-C - Last Filed: 04/24/25 08:20> Procedures Date of Service Date of Service: 04/24/25 <Darien Matt PA-C - Last Filed: 04/24/25 08:20> 04/24/25 <Lukasz Rivera MD - Last Filed: 04/24/25 14:39>
[2025-04-24] MEDS: oxyCODONE HCl Immed Release 5 MG TABLET PO ×2 (07:44→21:12)
--- NOTE | 2025-04-24 08:54 | PHA.MEDREC ---
Addendum entered by Milena Ellington RP 04/24/25 09:16: Reviewed by [facility] Original Note: Pharmacy Consult ? Medication Reconciliation Pharmacy has completed the medication reconciliation. Spoke with pt, utilizing clerical methods analyst and pt confirmed she is not taking any medications at this time.
[2025-04-24] MEDS: Lactated Ringers 1,000 ML 80 ML IVCONT ×2 (12:44→18:30)
--- NOTE | 2025-04-24 13:51 | HO.ANESPROP2 ---
[facility] Active Problems Active Problems: All Active Problems Cholelithiasis (Acute) Abdominal pain (Acute) Past Medical History Functional capacity: independent ambulation Family History Family history of problems with anesthesia: No Surgical History Surgical History Previous section History of Problems with Anesthesia: No Social History Social History Household Members: Spouse and Children Housing: Apartment Are you a primary medicare biller to a significant other at home: No Do you presently have visiting nurse or other home services: No Patient Tobacco Use Status: Never used Tobacco Second Hand Smoke Exposure: No Use of substances other than those prescribed or required for medical reasons: No Have you been hit, kicked, punched, or otherwise hurt by someone within the past year? If so, by whom?: No Do you feel safe in your current relationship?: Yes Is there a partner from a previous relationship who is making you feel unsafe now?: No Are you made to feel afraid or neglected: No Are you DNR?: No Advance Directives: No Advance Directives Information Provided: No Advance Directives on File: No Do you have a plan to hurt others: No Plan Recently lost weight without trying: No Nutrition Risks: No Nutritional Risk Patient : No : No Poor oral hygiene: No Meds Allergies Allergy/AdvReac Type Severity Reaction Status Date / Time No Known Allergies Allergy Verified 04/23/25 14:30 Active Medications: Current Medications Acetaminophen (Acetaminophen 325 Mg Tablet) 650 mg PO Q6H PRN PRN Reason: Pain, Mild 1-3,fever,headache Calcium Carbonate (Calcium Carbonate 750 Mg Tab.Chew) 750 mg PO Q4H PRN PRN Reason: Heartburn Hydromorphone HCl (Hydromorphone Hcl 1 Mg/Ml Syringe) 0.5 mg IVPUSH Q4H PRN; Protocol PRN Reason: Pain, Severe (Pain Scale 7-10) Lactated Ringer's (Lr) 1,000 mls @ 100 mls/hr IVCONT .Q10H IMANI Last Admin: 04/24/25 09:10 Dose: 100 mls/hr Piperacillin Sod/Tazobactam (Sod 3.375 gm/ Sodium Chloride) 50 mls @ 100 mls/hr IV Q6H [facility] Last Infusion: 04/24/25 13:03 Dose: Infused Lactated Ringer's (Lr) 1,000 mls @ 80 mls/hr IVCONT .[id number] [facility] Last Admin: 04/24/25 12:44 Dose: 80 mls/hr Magnesium Hydroxide (Milk Of Magnesia 30 Ml Oral.Susp) 30 ml PO DAILY PRN PRN Reason: Constipation Melatonin (Melatonin 3 Mg Tablet) 6 mg PO BEDTIME PRN PRN Reason: Insomnia Ondansetron HCl (Ondansetron Hcl 4 Mg/2 Ml Vial) 4 mg IVPUSH Q8H PRN PRN Reason: Nausea and Vomiting Oxycodone HCl (Oxycodone Hcl Immed Release 5 Mg Tablet) 5 mg PO Q6H PRN PRN Reason: Pain, Moderate(Pain Scale 4-6) Last Admin: 04/24/25 07:44 Dose: 5 mg Sodium Chloride (0.9 % Sodium Chloride Flush 3 Ml Syringe) 3 ml IVFLUSH QSHIFT [facility] Last Admin: 04/24/25 07:13 Dose: Not Given Home Medications ?Medication ?Instructions ?Recorded ?Confirmed ?Last Taken ?Type No Known Home Meds 04/24/25 04/24/25 Unknown History Exam Exam Date and Time: 04/24/25 Height,Weight and Vital Signs: Height 4 ft 9 in Weight 86.183 kg Last Vital Signs Temp 97.2 F 04/24/25 12:08 Pulse 66 04/24/25 12:08 Resp 16 04/24/25 12:08 BP 128/71 04/24/25 12:08 Pulse Ox 97 04/24/25 12:08 O2 Del Method Room Air 04/24/25 12:08 Pertinent Lab Results Pertinent Lab Results: Laboratory Tests 04/23/25 04/23/25 04/24/25 14:42 14:45 03:46 WBC 6.3 5.4 RBC 4.74 4.37 Hgb 13.3 12.3 Hct 40.3 36.8 L MCV 85.0 84.2 MCH 28.1 28.1 MCHC 33.0 33.4 RDW 12.7 12.9 Plt Count 325 294 MPV 8.6 L 8.6 L Immature Gran % (Auto) 0.3 0.4 Neut % (Auto) 65.4 62.2 Lymph % (Auto) 21.9 24.7 [place] % (Auto) 9.7 9.2 Eos % (Auto) 2.4 3.1 Baso % (Auto) 0.3 0.4 Lymph # (Auto) 1.4 1.3 [place] # (Auto) 0.6 0.5 Eos # (Auto) 0.2 0.2 Baso # (Auto) 0.0 0.0 Abs Immat Gran (auto) 0.02 0.02 Absolute Neuts (auto) 4.1 3.4 Absolute Nucleated RBC 0.000 0.000 Nucleated RBC % (auto) 0.0 0.0 Sodium 141 Potassium 3.7 Chloride 110 H Carbon Dioxide 26 Anion Gap 9 L BUN 14 Creatinine 0.56 Estim Creat Clear Calc 122.7 Estimated GFR > 60 Random Glucose 100 Calcium 9.1 Total Bilirubin 0.2 0.5 Direct Bilirubin 0.1 AST 24 21 ALT 20 17 Alkaline Phosphatase 97 75 C-Reactive Protein 0.16 Total Protein 7.0 6.0 L Albumin 4.3 3.6 Lipase 29 Beta HCG, Quant < 2 Urine Color Yellow Urine Appearance Clear Urine pH 6.0 Ur Specific [place] 1.020 Urine Protein Negative Urine Glucose (UA) Negative Urine Ketones Negative Urine Blood Negative Urine Nitrite Negative Ur Leukocyte Esterase Negative Urine Test NEGATIVE Airway Mallampati Class: II TM Dist: >3cm Neck ROM: Full Heart: rrr Lungs: ctab vesicular Assessment and Plan Assessment Anesthesia Assessment: Anesthesia Plan Discussed and Chart Reviewed Final Anesthetic Review Family History of Problems with Anesthesia: No History of Problems with Anesthesia: No NPO: Yes ASA Class: II Final Preanesthetic Review: No Changes in Pt Med Stat, Meds/Allgs Chart Reviewed, Consent Obtained/Reviewed and Anes Risks/Benef Reviewed Patient Risk: Low Procedure Risk: Low Anesthetic Plan Anesthetic Plan: GA Disposition: Standard PACU
--- NOTE | 2025-04-24 14:33 | MHC.CM.PN ---
CM attempted to complete CM assessment, patient off unit for procedure.
[2025-04-24] MEDS: Lactated Ringers 500 ML 20 ML IVCONT (15:02)
--- NOTE | 2025-04-24 16:39 | P.OP_ITS ---
Operative Note Operative Note Date of Service: 04/24/25 Narrative: Preoperative diagnosis: cholecystitis Postoperative diagnosis: cholecystitis Procedure performed: laparoscopic cholecystectomy Anesthesia general: endotracheal anesthesia Estimated blood loss approximately 20 cc Specimen: gallbladder and contents Surgeon: Lukasz Rivera MD [employer] Counselor: Darien BAIRD IV fluid 1.5 L of crystalloid Complications none, postoperative drains tubes and catheters none, findings consistent with acute cholecystitis and cholelithiasis. The patient was brought to the operating room and placed supine on the operating table. Her arms and legs were cushioned appropriately and Venodyne boots were placed on both lower extremities and compression was begun. A general endotracheal anesthesia was then initiated with the Anesthesiology Service the patient's abdomen was then prepped and draped in a standard sterile fashion. After this approximately 20 cc of 0.25% Marcaine with epinephrine were infused in the skin and soft tissue in the infraumbilical region of the patient's abdomen. Through this locally anesthetized site a stab incision was created following Ariane's lines of the skin and carried down with a combination of blunt and sharp dissection to the umbilical root which was grasped and elevated exposing the median raphe. A stab incision was then created in the median raphae and gently spread with a Schnidt clamp allowing access to the peritoneal cavity. A 12 mm laparoscopic trocar port was then placed and CO2 acids insufflated to create pneumoperitoneum. Once the intra-abdominal pressure is reached approximately 1 5 mmHg the intra-abdominal contents were surveyed with the laparoscope. There is no evidence of injury from placement of either the local anesthetic or the laparoscopic trocar port. Three more ports were subsequently placed. They were all 5 mm ports were placed via separate stab incisions in the right subcostal region of the right periumbilical region in the epigastric region. The patient is then placed in steep reverse Trendelenburg position with her left side down. The gallbladder was identified as normal anatomic location underneath of the lobe of the liver which was quite fatty. It appeared to be slightly edematous. It was grasped and elevated. We used a two axis retraction technique to provide adequate exposure. Thin filmy attachments to the underside of the gallbladder were taken down with hook cautery. Peritoneal attachments that were slightly inflamed were taken down over the region of the cystic duct the cystic artery. Both structures were identified and controlled with 5 mm metallic clamps. Three were placed on the patient's side and 1 was placed on the specimen side for both structures they are divided in between with endo Sadaf. It was noted that there was an accessory branch to the cystic artery that proceeded posterior to the gallbladder. This was ultimately ligated with clips as well. We then used cautery to completely excise the gallbladder from the surrounding soft tissue attachments to the underbelly of the liver. Once the gallbladder was completely free the gallbladder fossa was inspected. All the clips were visualized to be securely in place. There is no evidence of hemorrhage or bile leakage. The gallbladder was then placed a retrieval bag and delivered out of the patient's abdomen and passed off table as a specimen. Final laparoscopic surveillance revealed no evidence of hemorrhage or bile leakage her visual injury. The pneumoperitoneum was completely released. The fascia underneath the umbilical port was closed using 0 Polysorb on a UR 6 needle. The skin incisions were all closed with 4-0 Vicryl in a buried subcuticular fashion. Steri-Strips and sterile occlusive dressings were applied. The patient tolerated procedure well, was recovered from anesthesia and taken to the recovery room in good condition. Should be noted that the sponge instrument needle counts were correct at the end of the case and then I directly supervised or performed all aspects of the case.
[2025-04-25 03:56] VITALS: BP 115/56; PULSE 77; RESP 18; TEMP 36.4
[2025-04-25] MEDS: Lactated Ringers 1,000 ML 80 ML IVCONT (05:41)
[2025-04-25 07:57] VITALS: BP 107/59; PULSE 71; RESP 16; TEMP 37.1; O2SAT 93
--- NOTE | 2025-04-25 07:59 | P.PNGS_ITS ---
Subjective Subjective Date of Service: 04/25/25 Interval history: Feeling well. Denies significant pain. Denies nausea or vomiting. Tolerating regular diet after procedure yesterday. Has been ambulating. Denies issues with urination. Physical Exam 2 Vital Signs: Vital Signs: Last Vital Signs Temp 97.5 F 04/25/25 03:56 Pulse 77 04/25/25 03:56 Resp 18 04/25/25 03:56 BP 115/56 L 04/25/25 03:56 Pulse Ox 93 04/24/25 19:57 O2 Del Method Nasal Cannula 04/24/25 19:57 O2 Flow Rate 2 04/24/25 19:57 BMI result Body Mass Index 41.1 Const: General: comfortable and no acute distress O rientation/consciousness: patient oriented x3 Resp: Effort & Inspection: normal respiratory effort and able to speak in complete sentences GI: Other: Incision site dressings in place, appears clean and dry Inspection: No distended Palpation (GI): Soft to palpation, Tenderness to palpation present (GI) (Mild tenderness incisional.) and no guarding Neuro: General: patient oriented x3 Objective Data Active Medications Acetaminophen (Acetaminophen 325 Mg Tablet) 650 mg PO Q6H PRN PRN Reason: Pain, Mild 1-3,fever,headache Calcium Carbonate (Calcium Carbonate 750 Mg Tab.Chew) 750 mg PO Q4H PRN PRN Reason: Heartburn Docusate Sodium (Docusate Sodium 100 Mg Capsule) 100 mg PO BID [facility] Last Admin: 04/24/25 21:07 Dose: 100 mg Documented By: RICHARDSON Hydromorphone HCl (Hydromorphone Hcl 1 Mg/Ml Syringe) 0.5 mg IVPUSH Q4H PRN; Protocol PRN Reason: Pain, Severe (Pain Scale 7-10) Last Admin: 04/24/25 18:35 Dose: 0.5 mg Documented By: FLOYD Lactated Ringer's (Lr) 1,000 mls @ 80 mls/hr IVCONT .[id number] [facility] Last Admin: 04/25/25 05:41 Dose: 80 mls/hr Documented By: RICHARDSON Magnesium Hydroxide (Milk Of Magnesia 30 Ml Oral.Susp) 30 ml PO DAILY PRN PRN Reason: Constipation Melatonin (Melatonin 3 Mg Tablet) 6 mg PO BEDTIME PRN PRN Reason: Insomnia Ondansetron HCl (Ondansetron Hcl 4 Mg/2 Ml Vial) 4 mg IVPUSH Q8H PRN PRN Reason: Nausea and Vomiting Last Admin: 04/24/25 18:30 Dose: 4 mg Documented By: FLOYD Oxycodone HCl (Oxycodone Hcl Immed Release 5 Mg Tablet) 5 mg PO Q6H PRN PRN Reason: Pain, Moderate(Pain Scale 4-6) Last Admin: 04/24/25 21:12 Dose: 5 mg Documented By: RICHARDSON Sodium Chloride (0.9 % Sodium Chloride Flush 3 Ml Syringe) 3 ml IVFLUSH QSHIFT [facility] Last Admin: 04/25/25 07:22 Dose: Not Given Documented By: JASON Non-Admin Reason: IV Running Labs 04/24/25 03:46 04/23/25 14:42 Procedures Date of Service Date of Service: 04/25/25 Progress Note: A&P Assessment and plan (1) S/P laparoscopic cholecystectomy: Status: Acute Plan 39-year-old female admitted for symptomatic cholelithiasis now postop day 1 laparoscopic cholecystectomy. Patient tolerated the procedure well was transferred back to [facility]. She is doing well, minimal pain. Tolerated regular diet yesterday after procedure. She is denying nausea or vomiting. She is ambulating throughout her room and the floor without issue. She is not having any urinary complaints. She appears well, on exam her abdomen is soft and benign, some mild incisional tenderness. Incision sites appear clean and dry, dressings are in place. Can likely be discharged this afternoon if continues to do well. Ambulation and spirometry as tolerated A.m. labs pending Continue regular diet Continuing to be antibiotics Possible discharge this afternoon Time Spent With Patient Time: Total time managing care of this patient today ____ minutes. Quality Stroke Does the patient have a stroke diagnosis?: No VTE Prior VTE?: No VTE Risk Level:: Surgical - low VTE Device Contraindication: N/A - Device Ordered VTE Drug Contraindication: Treatment Not Indicated
[2025-04-25] MEDS: oxyCODONE HCl Immed Release 5 MG TABLET PO (08:01)
--- NOTE | 2025-04-25 08:13 | HO.POSTANES ---
Post Anesthesia Evaluation Post Anesthesia Evaluation Date of Service: 04/25/25 Vital Signs: Vital Signs Temp Pulse Resp BP Pulse Ox O2 Del Method 04/25/25 07:57 98.8 F 71 16 107/59 L 93 Room Air 04/25/25 03:56 97.5 F 77 18 115/56 L Anesthesia: General Mental Status: Awake Pain Control: Satisfactory Nausea/Vomiting: None Hydration: Adequate Anesthesia-Related Issues: No Anes. Related Issues
[2025-04-25 08:29] LABS: Hematocrit 39.8 % (37.0-47.0); Hemoglobin 13.1 g/dl (12.0-16.0); Mean Corpuscular HGB Conc 32.9 g/dl (31.0-35.0); Mean Corpuscular Hemoglobin 27.6 pg (27.0-33.0); Mean Corpuscular Volume 84.0 fL (80.0-98.0); NRBC Abs Auto 0.000 X10*3/uL (0.0-0.012); NRBC Pct Auto 0.0 /100WBC (0.0-0.2); Platelet Count 314 X10*3/uL (160-400); Red Blood Count 4.74 X10*6/uL (4.20-5.50); White Blood Count 10.2 X10*3/uL (4.8-10.8)
[2025-04-25 08:42] LABS: Anion Gap 10 (12-20); Blood Urea Nitrogen 9 mg/dL (9-16); Calcium 9.1 mg/dL (8.4-10.2); Carbon Dioxide 24 mmol/L (22-29); Chloride 109 mmol/L (96-108); Creatinine Clr Calc Pharmacy 140.2; Estimated Glomerular Filt Rate > 60; Potassium 3.9 mmol/L (3.3-5.1); Sodium 139 mmol/L (135-145)
--- NOTE | 2025-04-25 12:48 | MHC.CM.PN ---
pt lives with family is indepedent will not need services has a ride home dc plan home n/s
--- NOTE | 2025-04-25 14:05 | PM.DS ---
DS: Providers Provider Date of Service: 04/25/25 Date of admission: 04/23/25 23:29 Date of discharge: 04/25/25 Primary care physician: None Physician Admitting clinician: Lukasz Rivera Attending physician on admission: Lukasz Rivera Attending physician on discharge: Lukasz Rivera DS: Diagnosis Discharge Diagnosis (1) S/P laparoscopic cholecystectomy: Status: Acute DS: Summary Hospital Course Hospital Course: Admission HPI: Neha Hardy is a 39 year old otherwise healthy female who presented to the ED with a 2 week history of intermittent RUQ and epigastric pain in her abdomen. She states that this has been daily, and is often precipitated by meal. she reports subjective chills at home. She denies nausea or vomiting. Reports the pain was so bad yesterday that she felt the need to come to the ED. She denies any significant medical history, denies daily medications. She has a history of 1 Csection about 15 years ago. Workup in the ED included basic labs, showing no abnormalities. Abd US showing cholelithiasis, no wall thickening, or pericholecystic fluid. To note she did have some improvement in pain with low dose toradol. She then trialled diet for which her symptoms returned. Currently states her pain is a 5/10. denying nausea/vomiting. She was started on IV fluid and IV zosyn. Hospital course: Patient was admitted for acute cholecystitis, started on IV zosyn, she was brought to the operating room for laparoscopic cholecystectomy. The procedure was uncomplicated and she tolerated this well and was transferred to the [facility] surg floor for further management. On POD 1 her pain was well controlled, she was ambulating without issue. Tolerated diet. she felt ready to be discharged. At the time of discharge, the patient was in stable condition and her abdominal exam was soft and benign aside from appropriate post surgical insicional site tenderness. Status at Discharge Functional status at discharge: independent ambulation Overall status at discharge: patient is progressing back to baseline Time Attestation Discharge Coordination Time (in mins): 30 Quality: Safe Use of Opioids Does Pt have an Active Cancer Diagnosis on the Problem List?: No Quality: Stroke Does the patient have a stroke diagnosis?: No Physical Exam Vital Signs: Vital Signs: Last Vital Signs Temp 98.8 F 04/25/25 07:57 Pulse 71 04/25/25 07:57 Resp 16 04/25/25 07:57 BP 107/59 L 04/25/25 07:57 Pulse Ox 93 04/25/25 07:57 O2 Del Method Room Air 04/25/25 07:57 O2 Flow Rate 2 04/24/25 19:57 BMI result Body Mass Index 41.1 Const: General: comfortable and no acute distress Orientation/consciousness: patient oriented x3 Resp: Effort & Inspection: normal respiratory effort and able to speak in complete sentences GI: Other: Incision site dressings in place, appears clean and dry Inspection: No distended Palpation (GI): Soft to palpation, Tenderness to palpation present (GI) (Mild tenderness incisional.) and no guarding Neuro: General: patient oriented x3 DS: Data Data Completed and Pending Pending studies at discharge: Pending at discharge 04/24/25 16:02 Surgical [PTH] Routine Labs on day of discharge: Laboratory Results - last 24 hr 04/25/25 08:20 WBC 10.2 RBC 4.74 Hgb 13.1 Hct 39.8 MCV 84.0 MCH 27.6 MCHC 32.9 RDW 12.7 Plt Count 314 MPV 8.4 L Absolute Nucleated RBC 0.000 Nucleated RBC % (auto) 0.0 Sodium 139 Potassium 3.9 Chloride 109 H Carbon Dioxide 24 Anion Gap 10 L BUN 9 Creatinine 0.49 L Estim Creat Clear Calc 140.2 Estimated GFR > 60 Random Glucose 114 Calcium 9.1 Discharge Plan Discharge Anticipated Discharge Date/Time: 04/25/25 12:17 Patient Disposition: Home, Self-Care Discharge Diagnosis: Symptomatic cholelithiasis Referrals: Physician,None [Primary Care Provider, Medical] - 1 Week Discharge Medications: New docusate sodium [Colace] 100 mg capsule 100 mg PO BID Qty: 30 0RF oxycodone 5 mg tablet 5 mg PO Q6H PRN (Reason: pain) Qty: 20 0RF Rx Instructions: Partial Fill upon patient request. Discharge Orders: Discharge Order (Routine); Ordered 04/25/25 Ordered By: Darien Matt Diet: Low fat, low cholesterol Activity on Discharge: No heavy lifting Stand Alone Forms: Patient Portal Discharge page Print Language: Estonian Activity Restrictions/Additional Instructions: If your incision site is sore, you may apply ice to the area for short periods of time (no more than 20 minutes at a time, followed by 20 minutes off). You were prescribed oxycodone to assist with pain management as needed. You can additionally use OTC ibuprofen or acetaminophen as needed for pain. You can remove the dressings at home, they do not need to be redressed. Steri strips can remain in place and will likely fall on their own or in the shower. No heavy lifting >20 pounds No strenuous activity. Do not use creams, lotion, ointment on the incision sites You will follow up with Dr. Rivera in the office in 1 week, you can call the office to schedule the appointment ) Please reach out to the office or be seen at the emergency department if you develop: -Fever >101.5 -Increasing pain or swelling of the area -Increased bleeding from the incision site or the incision begins to separate -If you are concerned for incision site infection such as redness, warmth, discharge. Some yellow/pink tinged discharge is normal -You develop nausea or vomiting Care Plan Goals: Follow up in the office Health Concerns: Postop pain Plan of Treatment: Follow up in the office with Dr. Rivera Assessment: Patient doing well Discharge Date/Time: 04/25/25 14:33
--- NOTE | 2025-04-25 14:08 | MHC.CM.PN ---
pt dcd home self care
== END 2025-04-25 14:33 | disposition home or self-care (01) | DRG 263 ==
LOC: HO.ED 18:14 → HO.EDOVER 23:37 → HO.SSSA 04-24 13:22 → HO.S3 04-24 16:32
PROVIDERS: Physician Assistant; Surgery; Admitting Provider Physician Assistant Surgical; Emergency Provider Emergency Medicine; Visit Provider Physician Assistant Surgical
PROC: 0FT44ZZ Resection of Gallbladder, Percutaneous Endoscopic Approach (ICD-10-PCS; CPT 47562; principal; 2025-04-24 13:30)
DX: K80.00 Calculus of gallbladder with acute cholecystitis without obstruction (principal)
CPT/HCPCS: 36415; 76705; 80048; 80053; 80076; 81003; 81025; 83690; 84702; 85025; 85027; 86140; 88304; 99285; J0131; J1171; J1308; J1885; J2003; J2250; J2371; J2405; J2543; J2704; J3010; J7120

== ENCOUNTER → 2025-04-23 18:26 | Outpatient (BNV) | payer MEDICAID, SELFPAY | PROVIDERS: Emergency Provider Emergency Medicine; Visit Provider Student in an Organized Health Care Education/Training Program | DX: K80.20 Calculus of gallbladder without cholecystitis without obstruction (principal) | CPT/HCPCS: 76705 ==

== ENCOUNTER → 2025-04-23 23:29 | Outpatient (BNV) | payer MEDICAID, SELFPAY | PROVIDERS: Admitting Provider Physician Assistant Surgical; Emergency Provider Emergency Medicine | DX: Z90.49 Acquired absence of other specified parts of digestive tract (principal) | CPT/HCPCS: 99024 ==

== ENCOUNTER 2025-05-01 15:01 | Outpatient (AMB) | payer MEDICAID, SELFPAY ==
--- NOTE | 2025-05-01 15:05 | A.OFFVIS_ITS ---
Vital Signs 05/01/25 15:11 Weight 188 lb BP 120/69 Blood Pressure Location Rt brachial Position Sitting Pulse 88 Intake Visit Reasons: s/p lap constantin Intake Note: Patient here s/p laparoscopic cholecystectomy. Patient c/o: reports incisions healed well. Denies pain, oozing. Surgery (JK): 04-24-2025 Estimator Paperboard Boxes Required: Yes Estimator Paperboard Boxes Language: Labeling Strategist Name: Gabriela TRIPATHI Information Interpreted: non-clinical & clinical Accompanied by: spouse Basilio Allergies No Known Allergies Allergy (Verified 05/01/25 15:09) Medication List - Last Reconciled 05/01/25 by Lukasz Rivera MD docusate sodium (Colace) 100 mg PO BID oxycodone 5 mg PO Q6H PRN HPI Comments Details: 39-year-old lady follows up today after undergoing emergent laparoscopic cholecystectomy on 04/24/2025 for acute cholecystitis. She reports she is doing well. She denies any fevers chills nausea or vomiting. She reports regular diet. She still has mild abdominal discomfort but she reports she feels that is normal for her. She requests a note so that she can return to work today. [facility] Surgical History Previous section Social History Household Members: Spouse and Children Housing: Apartment Are you a primary healthcare management to a significant other at home: No Do you presently have visiting nurse or other home services: No Patient Tobacco Use Status: Never used Tobacco Second Hand Smoke Exposure: No Review of Systems Const All systems reviewed & are unremarkable except as noted in HPI and below Physical Exam Vital Signs: Last Vital Signs Pulse 88 05/01/25 15:11 BP 120/69 05/01/25 15:11 Const General: cooperative, healthy appearing, comfortable, no acute distress, well developed and alert HEENT Head: Yes normal to inspection Eyes General: appearance normal, both eyes and all related structures Sclerae: sclerae normal Pupils: Equal, round and reactive pupils present EOM: EOMs intact bilaterally Neck Neck: Yes normal visual inspection Chest Chest palpation & inspection: normal inspection of the chest GI Other: Incisions clean dry and intact without erythema edema or discharge. Abdomen is soft nondistended vaguely appropriately tender for this stage of her postoperative convalescence. Inspection: Yes normal to inspection Neuro Cranial nerves: Yes Equal, round and reactive pupils present Assessment & Plan Assessment & Plan (1) S/P laparoscopic cholecystectomy: Code(s): Z90.49 - Acquired absence of other specified parts of digestive tract Category: Medical Plan: I told the patient I felt she was doing well and she agreed. She can returned to work as tolerated and she can follow up with us on a p.r.n. basis. She was encouraged to contact us should she have any questions or problems. She said she was happy with the plan as it was outlined to her. Coding Level of Care Code Est Pt Level 3 (58130) Diagnoses S/P laparoscopic cholecystectomy Z90.49 Time Spent (min) 20 Comment Patient visit record review and coordination of care
[2025-05-01 15:11] VITALS: BP 120/69; PULSE 88
== END 2025-05-01 15:13 | disposition home or self-care (01) ==
LOC: HO.HGS 15:02
PROVIDERS: Visit Provider Surgery
DX: Z90.49 Acquired absence of other specified parts of digestive tract (principal)
CPT/HCPCS: 99024

== ENCOUNTER → 2025-05-01 15:01 | Outpatient (BNVA) | payer MEDICAID, SELFPAY | PROVIDERS: Visit Provider Surgery | DX: Z48.815 Encounter for surgical aftercare following surgery on the digestive system (principal); Z90.49 Acquired absence of other specified parts of digestive tract; Z98.890 Other specified postprocedural states | CPT/HCPCS: 99212 ==